=== PATIENT | male | born 1985 | race Caucasian/White ===

== ENCOUNTER 2018-12-16 07:45 | Emergency (ER) | payer MEDICAID ==
[~2018-12-16] VITALS: Ht 167.6 cm; Wt 110.7 kg
[2018-12-16 07:50] VITALS: Ht 167.6 cm; Wt 110.7 kg
[2018-12-16 09:38] VITALS: BP 148/89
== END 2018-12-16 09:35 | disposition home or self-care (01) ==
LOC: ED 07:45
DX: S01.112A Laceration without foreign body of left eyelid and periocular area, initial encounter (principal); S50.12XA Contusion of left forearm, initial encounter; V18.4XXA Pedal cycle driver injured in noncollision transport accident in traffic accident, initial encounter; Y93.I9 Activity, other involving external motion; Y92.89 Other specified places as the place of occurrence of the external cause; Y99.8 Other external cause status